=== PATIENT | female | born 2000 | race Caucasian/White ===

== ENCOUNTER 2024-11-04 12:24 | Emergency (ER) | payer OTHER ==
[~2024-11-04] VITALS: Ht 175.3 cm; Wt 55.8 kg
[2024-11-04] MEDS ORDERED: RITALIN LA10 MG (13:08)
[2024-11-04] MEDS ORDERED: KETOROLAC TROMETHAMINE 30 MG VIAL IV ONE (15:30)
[2024-11-04] MEDS ORDERED: KETOROLAC TROMETHAMINE 30 MG VIAL ONE (15:39)
== END 2024-11-04 15:59 | disposition home or self-care (01) ==
LOC: ER 12:26
DX: R07.89 Other chest pain (principal); R07.9 Chest pain, unspecified
CPT/HCPCS: 36415; 71250; 93005; 93041; 94760; 96365; 99284; J1885